=== PATIENT | male | born 1990 ===

== ENCOUNTER 2021-01-17 07:53 | Emergency (ER) | payer MEDICAID, OTHER ==
[~2021-01-17] VITALS: Ht 175.3 cm; Wt 72.6 kg
[2021-01-17 08:02] VITALS: BP 166/85
== END 2021-01-17 09:11 | disposition home or self-care (01) ==
LOC: ER 07:53
DX: S00.03XA Contusion of scalp, initial encounter (principal); S80.11XA Contusion of right lower leg, initial encounter; V43.52XA Car driver injured in collision with other type car in traffic accident, initial encounter; Y93.89 Activity, other specified; Y92.89 Other specified places as the place of occurrence of the external cause; Y99.8 Other external cause status
CPT/HCPCS: 70450